=== PATIENT | female | born 1990 | race Two or more races ===

== ENCOUNTER 2023-02-19 10:50 | Emergency (ER) | payer OTHER ==
[2023-02-19 11:00] VITALS: BMI 22.9
[2023-02-19] MEDS ORDERED: SODIUM CHLORIDE 1,000 ML IV ONE (11:04)
[2023-02-19 12:21] LABS: BASO % 0.1 % (0-2.0); EOS % 0.3 % (0-4.5); HEMATOCRIT 38.8 % (32.4-45.2); HEMOGLOBIN 13.8 GM/dL (10.7-15.3); MCH 32.3 pg (25.7-33.7); MCHC 35.5 g/dl (32.0-36.0); MEAN PLT VOLUME 7.8 fl (7.5-11.1); MONO % 6.4 % (3.8-10.2); NEUT % 77.2 % (42.8-82.8); PLATELET COUNT 271 10^3/uL (134-434); RBC 4.26 M/mm3 (3.60-5.2); RDW 12.5 % (11.6-15.6); WHITE BLOOD COUNT 11.8 K/mm3 (4.0-10.0)
[2023-02-19 12:31] LABS: INR 1.04 (0.83-1.09); PROTHROMBIN TIME (PATIENT) 12.1 SEC (9.7-13.0)
[2023-02-19 12:35] LABS: ACTIVATED PTT 31.2 SECONDS (25.2-36.5)
[2023-02-19 12:36] LABS: BLOOD UREA NITROGEN 7.2 mg/dL (7-18); CALCIUM 9.1 mg/dL (8.5-10.1)
[2023-02-19 12:39] LABS: CREATININE 0.5 mg/dL (0.55-1.3)
[2023-02-19 13:03] LABS: HCG,QUALITATIVE URINE Positive
[2023-02-19 13:06] LABS: PH,URINE 6.5 (5.0-8.0); URINE APPEARANCE CLEAR; URINE BILIRUBIN NEGATIVE (NEGATIVE); URINE COLOR YELLOW; URINE GLUCOSE (UA) NEGATIVE (NEGATIVE); URINE KETONE NEGATIVE (NEGATIVE); URINE LEUK ESTERASE NEGATIVE (NEGATIVE); URINE NITRITE NEGATIVE (NEGATIVE); URINE PROTEIN NEGATIVE (NEGATIVE); URINE UROBILINOGEN 0.2 mg/dL (0.2-1.0)
[2023-02-19 15:06] VITALS: BP 107/63; PULSE 71; RESP 20; TEMP 97.8
== END 2023-02-19 15:09 | disposition home or self-care (01) ==
LOC: JER 10:50
PROC: 3E0337Z Introduction of Electrolytic and Water Balance Substance into Peripheral Vein, Percutaneous Approach (ICD-10-PCS; principal; 2023-02-19)
DX: O03.9 Complete or unspecified spontaneous abortion without complication (principal); O26.891 Other specified pregnancy related conditions, first trimester; R25.2 Cramp and spasm; Z3A.00 Weeks of gestation of pregnancy not specified
CPT/HCPCS: 36415; 76817-TC; 80048; 81003; 84702; 84703; 85025; 85610; 85730; 86850; 86900; 86901; 87086; 99284-25

== ENCOUNTER → 2023-02-28 | Emergency (ER) | payer OTHER ==
[2023-02-28 15:26] VITALS: BP 107/53; PULSE 89; RESP 17; TEMP 98.2; BMI 20.2
== END | disposition left against medical advice (07) ==
LOC: JERFT 15:16
DX: Z32.00 Encounter for pregnancy test, result unknown (principal)
CPT/HCPCS: 99281-25